=== PATIENT | male | born 1970 | race Caucasian/White ===

== ENCOUNTER 2019-03-21 04:00 | Emergency (ER) | payer MEDICAID, OTHER ==
[2019-03-21] MEDS: DEXAMETHASONE 10 MG/ML 1 ML INJ IM (05:09)
== END 2019-03-21 05:13 | disposition home or self-care (01) ==
LOC: FTE 04:00
DX: J06.9 Acute upper respiratory infection, unspecified (principal)
CPT/HCPCS: 96372; 99284-25

== ENCOUNTER 2019-06-20 03:24 | Emergency (ER) | payer SELFPAY, MEDICAID | END 2019-06-20 04:26 | disposition home or self-care (01) | LOC: FTE 04:26 | DX: G47.33 Obstructive sleep apnea (adult) (pediatric) (principal) | CPT/HCPCS: 99282 ==